=== PATIENT | male | born 1950 | race Caucasian/White ===

== ENCOUNTER 2023-07-11 10:23 | Emergency (ER) | payer MEDICARE, OTHER, SELFPAY ==
[2023-07-11 10:51] VITALS: BP 129/92; PULSE 119; RESP 20; TEMP 36.7; O2SAT 95; BMI 25.1
--- NOTE | 2023-07-11 11:48 | ED_ITS ---
HPI - General Adult General Time Seen by Provider: 11:48 Date Seen: 07/11/23 Chief complaint: Cough Stated complaint: COVID Time Seen by Provider: 07/11/23 11:20 Source: patient, RN notes reviewed and old records reviewed Mode of arrival: ambulatory Limitations: no limitations History of Present Illness HPI narrative: 72-year-old male, generally healthy, who presents with COVID concerns. Patient reports history feeling poorly 2 days ago with nasal congestion, sore throat, and some body aches. Positive COVID test at that time and note COVID exposure prior to that. Says he started feel little bit better but does have some chest tightness. Denies chest pain, shortness of breath, nausea, vomiting, diarrhea, lightheadedness. Has been taking Tylenol in the evenings prior to going to bed for this but no other medications. Generally healthy, no past medical history, has had prior cholecystectomy, does not take any medications. Related Data Home Medications Medication Instructions Recorded Confirmed No Known Home Medications 07/11/23 07/11/23 Allergies Allergy/AdvReac Type Severity Reaction Status Date / Time No Known Drug Allergies Allergy Verified 07/11/23 10:50 PFSH PFS Social History Smoking Status: Never smoker Do you use any of these nicotine containing products: None Second hand tobacco smoke exposure: No How often do you have a drink containing alcohol: monthly or less How many standard drinks containing alcohol do you have on a typical day: 1 or 2 How often do you have six or more drinks on one occasion: Never AUDIT-C Alcohol total score: 1 Non-prescribed substance use: denies use service: Yes Exam Narrative: Exam Narrative: General: Well-developed and well-nourished, no acute distress Head: Atraumatic and normocephalic Eyes: Pupils are equal reactive, extraocular motions intact, conjunctiva clear ENT: External nose and ears are normal, posterior pharynx without erythema or exudate Neck: No midline cervical tenderness, full spontaneous range of motion the neck, trachea midline, no adenopathy Heart: Tachycardic but regular Lungs: Clear to auscultation bilaterally without wheezes or crackles Abdomen: Soft, nontender, nondistended with active bowel sounds Musculoskeletal: No tenderness, deformity, or edema Neurologic: Awake, alert, and oriented x3, no gross focal neurologic deficits, cranial nerves intact as tested Psych: Mood and affect are appropriate Skin: No rashes Const: Vital Signs, click to edit/add: Vital Signs - 24 hr 07/11/23 10:51 Temperature 98.1 F Pulse Rate [Pulse Oximeter] 119 H Respiratory Rate 20 Blood Pressure [Ri ght Upper Arm] 129/92 H Pulse Oximetry 95 Oxygen Delivery Me thod Room Air Course Course Hospital Course: Patient seen examined, prior records reviewed. Patient with known COVID exposure and positive COVID test who presents with COVID concerns. He denies shortness of breath, does have a little chest tightness and is tachycardic on initial exam. Lungs are clear. Concern for possible pulmonary embolism although patient says his heart rate runs little bit fast. Labs including D- dimer ordered, IV fluids will be administered. If D-dimer is negative, patient can be discharged with Paxlovid, risk factor of age. Reevaluation(s) Time of Reevaluation #1: 12:56 Reevaluation #1: Labs independently interpreted by lo normal basic metabolic panel, age adjusted D-dimer is weakly positive likely related to COVID infection, pulmonary embolism unlikely. Patient stable for discharge. Vital Signs Vital signs: Initial Vital Signs Temperature 98.1 F 07/11/23 10:51 Temperature Source Temporal Artery Scan 07/11/23 10:51 Pulse Rate 119 H 07/11/23 10:51 Pulse Rhythm Regular 07/11/23 10:51 Respiratory Rate 20 07/11/23 10:51 Blood Pressure 129/92 H 07/11/23 10:51 Blood Pressure Mean 104 07/11/23 10:51 Blood Pressure Position Sitting 07/11/23 10:51 Pulse Oximetry 95 07/11/23 10:51 Oxygen Delivery Method Room Air 07/11/23 10:51 Vital Signs Temperature 98.1 F 07/11/23 10:51 Pulse Rate 119 H 07/11/23 10:51 Respiratory Rate 20 07/11/23 10:51 Blood Pressure 129/92 H 07/11/23 10:51 Pulse Oximetry 95 07/11/23 10:51 Oxygen Delivery Method Room Air 07/11/23 10:51 Temperature 98.1 F 07/11/23 10:51 Pulse Rate 119 H 07/11/23 10:51 Respiratory Rate 20 07/11/23 10:51 Blood Pressure 129/92 H 07/11/23 10:51 Pulse Oximetry 95 07/11/23 10:51 Oxygen Delivery Method Room Air 07/11/23 10:51 Medical Decision Making Lab Data Labs: Lab Results 07/11/23 Range/Units 12:00 D-Dimer Quant (PE/DVT) 0.75 H (0.00-0.50) ug/ml Sodium 138 (135-149) mmol/L Potassium 3.7 (3.6-5.1) mmol/L Chloride 101 (96-114) mmol/L Carbon Dioxide 26 (20-32) mmol/L BUN 18 (7-30) mg/dL Creatinine 1.2 (0.5-1.5) mg/dL Estimated Creat Clear 54.83 Estimated GFR 64 ml/min Glucose 128 H (60-115) mg/dL Calcium 9.7 (8.4-10.6) mg/dL Magnesium 2.3 (1.5-2.6) mg/dL ECG Data Attestation: I personally reviewed and interpreted this ECG as follows: Prior ECG tracings: not available for review Interpretation: Performed at 11:49 a.m. demonstrates sinus rhythm, left bundle-branch block, no acute ST elevations or depressions, normal axis, QTC 505, CA 166. No prior for comparison. Discharge Plan Discharge Clinical Impression: COVID-19 Condition: Stable Instructions: COVID-19 (Coronavirus Disease 2019) (ED) Additional Instructions: Tylenol and ibuprofen as needed for fever and body aches. Make sure you are drinking plenty fluids and getting plenty of rest. Activity Level: No Restrictions Discharge Diet: Regular Prescriptions: No Action No Known Home Medications Stand Alone Forms: [employer] Info Instructions
[2023-07-11] MEDS: LACTATED RINGERS 1000 ML 1,000 ML IV (12:22)
[2023-07-11 12:30] VITALS: BP 133/83; PULSE 97; RESP 16; O2SAT 97
[2023-07-11 12:44] LABS: Chloride* 101 mmol/L (96-114); Potassium* 3.7 mmol/L (3.6-5.1); Sodium* 138 mmol/L (135-149)
[2023-07-11 12:45] VITALS: BP 131/87; PULSE 88; RESP 16; O2SAT 98
[2023-07-11 12:47] LABS: Blood Urea Nitrogen* 18 mg/dL (7-30); Calcium* 9.7 mg/dL (8.4-10.6); Carbon Dioxide* 26 mmol/L (20-32); Creatinine* 1.2 mg/dL (0.5-1.5); Est. Creatinine Clearance* 54.83; Estimated Glomerular Filt Rate 64 ml/min; Glucose* 128 mg/dL (60-115)
[2023-07-11 12:48] LABS: Magnesium* 2.3 mg/dL (1.5-2.6)
[2023-07-11 12:49] LABS: D Dimer Quantitative* 0.75 ug/ml (0.00-0.50)
[2023-07-11 13:00] VITALS: BP 126/90; PULSE 89; RESP 16; O2SAT 97
[2023-07-11 13:05] VITALS: BP 135/92; PULSE 90; RESP 16; O2SAT 97
== END 2023-07-11 13:27 | disposition home or self-care (01) ==
LOC: ED 12:50
PROVIDERS: Emergency Provider Family Medicine
DX: U07.1 COVID-19 (principal)
CPT/HCPCS: 36415; 80048; 83735; 85379; 93005; 99284; J7120